=== PATIENT | male | born 1940 | race Caucasian/White ===

== ENCOUNTER 2018-05-29 10:17 | Emergency (ER) | payer MEDICARE ==
[~2018-05-29] VITALS: Ht 172.7 cm; Wt 69.0 kg
[~2018-05-29 10:17] MED LIST: BUPR75TA6 PO; DIVA125T31 PO; ESTR0.753 PO; LORA0.5T PO; MELA5CAP PO; NYST1POW2 TP; RISP0.5T3 PO; [UNRECOGNIZED DRUG - CODE] PO
[2018-05-29] MEDS ORDERED: SODIUM CHLORIDE 0.9% 1,000 ML IV ONE (10:24)
[2018-05-29] MEDS ORDERED: SODIUM CHLORIDE FLUSH 10ML SYR IVF ONE (10:30)
[2018-05-29] MEDS ORDERED: SODIUM CHLORIDE 0.9% 1,000ML IVBOLUS ONE (10:30)
[2018-05-29] MEDS ORDERED: LORazepam 2 MG/ML, 1ML ONE (10:39)
[2018-05-29] MEDS ORDERED: LORazepam 2 MG/ML, 1ML IVPush ONE (11:00)
[2018-05-29 11:05] LABS: MICROSCOPIC INDICATED
[2018-05-29 11:17] LABS: BASOPHILS # (AUTO) 0.09 x10^3/uL (0-0.1); BASOPHILS % (AUTO) 1 % (0-1); EOSINOPHILS # (AUTO) 0.04 x10^3/uL (0-0.4); EOSINOPHILS % (AUTO) 1 % (1-7); LYMPHOCYTES % (AUTO) 10 % (22-44); MD NO; MEAN CORPUSCULAR HGB CONC 33.5 g/dL (33.2-36.2); MEAN CORPUSCULAR VOLUME 95.4 fL (81-97); MEAN PLATELET VOLUME 9.3 fL (7.4-10.4); MONOCYTES # (AUTO) 0.41 x10^3/uL (0.2-0.8); MONOCYTES % (AUTO) 6 % (2-9); NEUTROPHILS # (AUTO) 6.15 x10^3/uL (1.8-6.8); NEUTROPHILS % (AUTO) 83 % (42-75); PLATELET COUNT 261 x10^3/uL (130-400); RED BLOOD COUNT 4.41 x10^6/uL (4.38-5.82)
[2018-05-29 11:17] LABS: CULTURE INDICATED? NO
[2018-05-29] MEDS ORDERED: DIVA125C3 PO (11:22)
[2018-05-29] MEDS ORDERED: POTA10TA11 PO (11:22)
[2018-05-29] MEDS ORDERED: QUET25TA PO (11:22)
[2018-05-29] MEDS ORDERED: POLY17PO5 PO (11:22)
[2018-05-29] MEDS ORDERED: FURO40TA6 PO (11:22)
[2018-05-29] MEDS ORDERED: ESCI10TA PO (11:22)
[2018-05-29] MEDS ORDERED: MULT-377 PO (11:22)
[2018-05-29] MEDS ORDERED: DOCU100T3 PO (11:22)
[2018-05-29 11:30] LABS: ALANINE AMINOTRANSFERASE 45 U/L (12-78); ANION GAP 7 mmol/L (5-15); CHLORIDE 108 mmol/L (98-107)
[2018-05-29 11:36] LABS: ALKALINE PHOSPHATASE 124 U/L (45-117); BILIRUBIN,TOTAL 0.5 mg/dL (0.2-1.0); TOTAL PROTEIN 7.4 g/dL (6.4-8.2); TROPONIN I < 0.015 ng/mL (0.000-0.045)
[2018-05-29 15:07] VITALS: BP 118/70
== END 2018-05-29 15:52 | disposition home or self-care (01) ==
LOC: ED 13:50
DX: G30.1 Alzheimer's disease with late onset (principal); F02.80 Dementia in other diseases classified elsewhere, unspecified severity, without behavioral disturbance, psychotic disturbance, mood disturbance, and anxiety; I10 Essential (primary) hypertension; E78.00 Pure hypercholesterolemia, unspecified; I48.91 Unspecified atrial fibrillation; F41.1 Generalized anxiety disorder; F32.9 Major depressive disorder, single episode, unspecified
CPT/HCPCS: 36415; 70450; 71045; 80053; 81001; 83605; 84484; 85025; 87040; 93005; 96361; 96374; 99284; J2060; J7030